=== PATIENT | male | born 1985 | race Two or more races ===

== ENCOUNTER 2021-02-17 19:46 | Inpatient (IN) | payer BC ==
[~2021-02-17] VITALS: Ht 182.9 cm; Wt 94.8 kg
[2021-02-17 20:00] VITALS: BP 112/76
--- NOTE | 2021-02-17 20:00 | NUR ---
MS RN ADMITTING NOTES RECEIVED PATIENT FORM ELBA Borrego.Radha [facility]IA [employer] AND ADMITTED VIA DIRECT ADMISSION. PATIENT IS A&O X 4, ABLE TO LET NEEDS KNOWN. PATIENT WAS ABLE TO AMBULATE WHEN TRANSFERRED TO BED. ON ROOM AIR TOLERATING WELL, N SOB NOTED. WITH IV ACCESS ON RAC G#20 PATENT AND FLUSHES WELL, IV ACCESS ON LEFT FOREARM AND LEFT AC BOTH PATENT AND FLUSHES WELL. STARTED ON NS 1L X 75CC/HR ON RAC, INFUSING WELL. VITAL SIGNS TAKEN AND RECORDED FOLLOWS, TEMP 98.1, TN 100, RR 18 BP 112/76, O2 SAT 98. NOTED WITH DIABETIC WOUND ON RIGHT FOOT, GANGRENE WOUND ON 4TH TOE RIGHT FOOT ALSO NOTED, HEALING WOUND ON PLANTAR ASPECT OF RIGHT FOOT ALSO NOTED, SCAB NOTED ON RIGHT POSTERIOR HAND. PICTURES TAKEN AND FILED TO PATIENT'S CHART. SAFETY PRECAUTIONS IN PLACE: BED ON LOWEST LOCKED POSITION, SIDE RAILS UP X 2. CALL LIGHT WITHIN EASY REACH. INSTRUCTED TO CALL FOR ASSISTANCE WHEN NEEDED. PATIENT VERBALIZED UNDERSTANDING. WILL CONTINUE TO MONITOR PATIENT STATUS.
[2021-02-17] MEDS ORDERED: *INSULIN REGULAR(HUMULIN R)HUM 100 UNIT/ML VIAL SQ PRN (20:30)
[2021-02-17] MEDS ORDERED: Z GUARD REMEDY 2 OZ OINT TP PRN (20:30)
[2021-02-17] MEDS ORDERED: INSULIN REGULAR, HUMAN 100 UNIT/ML 3 ML VIAL SQ PRN (20:30)
[2021-02-17] MEDS ORDERED: MAG HYDROX/AL HYDROX/SIMETH 30 ML UDC PO PRN (20:30)
[2021-02-17] MEDS ORDERED: MAGNESIUM HYDROXIDE 30 ML UDC PO PRN (20:30)
[2021-02-17] MEDS ORDERED: ZOLPIDEM TARTRATE 5 MG TABLET PO PRN (20:30)
[2021-02-17] MEDS ORDERED: DEXTROSE 50%-WATER 50 ML DISP.SYRIN IV PRN (20:30)
[2021-02-17] MEDS ORDERED: ASPI-1169 PO (20:39)
[2021-02-17] MEDS ORDERED: LISI10TA29 PO (20:39)
[2021-02-17] MEDS ORDERED: ATOR20TA PO (20:39)
[2021-02-17] MEDS: IV NS 0.9% 1,000 ML IV PRN (20:51)
[2021-02-17] MEDS ORDERED: BLOOD SUGAR DIAGNOSTIC 1 EACH STRIP VI SCH (22:00)
--- NOTE | 2021-02-17 22:00 | NUR ---
RN NOTES BLOOD SUGAR CHECKED, RESULT 299 MG/DL, 6 UNITS REGULAR INSULIN GIVEN ORDERED.
[2021-02-18] MEDS ORDERED: PIPERACILLIN /TAZOBACTAM 3.375 G VIAL IV ONE ×2 (00:06→05:50)
[2021-02-18] MEDS: PIPERACILLIN /TAZOBACTAM 3.375 G in IV D5W 50 ML IV SCH ×2 (00:14→05:53)
[2021-02-18] MEDS ORDERED: VANCOMYCIN 2 GM in IV D5W 500 ML IV ONE (00:30)
[2021-02-18] MEDS ORDERED: VANCOMYCIN 1 GM VIAL ONE (00:52)
[2021-02-18 06:10] LABS: CALCIUM, SERUM 7.5 mg/dL (8.5-10.1); CREATININE 1.9 mg/dL (0.6-1.3); MAGNESIUM 2.2 mg/dL (1.8-2.4); PHOSPHORUS 3.2 mg/dL (2.5-4.9); POTASSIUM 4.7 mmol/L (3.5-5.1)
[2021-02-18 06:12] LABS: BASOPHILS % (AUTO) 0.3 % (0.0-2.0); EOSINOPHILS % (AUTO) 0.4 % (0.0-6.0); HEMATOCRIT 28 % (39-51); HEMOGLOBIN 9.4 g/dL (13.5-17.5); LYMPHOCYTES # (AUTO) 0.8 K/uL (0.8-4.8); LYMPHOCYTES % (AUTO) 6.8 % (20.0-44.0); MEAN CORPUSCULAR HGB CONC 34 g/dl (31.0-36.0); MEAN CORPUSCULAR VOLUME 85 fL (80-96); MONOCYTES # (AUTO) 1.3 K/uL (0.1-1.30); MONOCYTES % (AUTO) 10.9 % (2.0-12.0); NEUTROPHILS # (AUTO) 9.7 K/uL (1.8-8.9); NEUTROPHILS % (AUTO) 81.6 % (43.0-81.0); PLATELET COUNT (AUTO) 249 K/uL (150-450); RED BLOOD CELL COUNT(AUTO) 3.28 MIL/uL (4.5-6.0); WHITE BLOOD COUNT (AUTO) 11.9 K/uL (4.3-11.0)
--- NOTE | 2021-02-18 06:13 | NUR ---
RN NOTES RECEIVED A PHONE CALL FROM LAB DEP'T RELAYING CRITICAL LAB RESULT OF GLUCOSE, RESULT WAS 351. RELAYED TO LARRY HERNANDEZ NP WITH ORDER MADE AND CARRIED OUT.
[2021-02-18] MEDS ORDERED: *INSULIN REGULAR(HUMULIN R)HUM 100 UNIT/ML VIAL SQ PRN (06:30)
[2021-02-18] MEDS ORDERED: INSULIN REGULAR, HUMAN 100 UNIT/ML 3 ML VIAL SQ PRN (06:30)
[2021-02-18] MEDS ORDERED: DEXTROSE 50%-WATER 50 ML DISP.SYRIN IV PRN ×2 (06:30→10:00)
--- NOTE | 2021-02-18 06:47 | NUR ---
MS RN CLOSING NOTES PATIENT IN BED, AWAKE, A&O X 4, ABLE TO LET NEEDS KNOWN. ON ROOM AIR TOLERATING WELL, NO SOB NOTED. IV OF NS 1L X 75CC/HR INFUSING WELL ON RAC, INTACT AND PATENT, NO INFILTRATION NOTED. IV ACCESS ON LEFT FOREARM AND LEFT AC BOTH PATENT AND FLUSHES WELL. WITH DIABETIC WOUND ON RIGHT FOOT, GANGRENE WOUND ON 4TH TOE RIGHT FOOT ALSO NOTED, HEALING WOUND ON PLANTAR ASPECT OF RIGHT FOOT ALSO NOTED, SCAB NOTED ON RIGHT POSTERIOR HAND. SAFETY PRECAUTIONS MAINTAINED AND OBSERVED DURING THE SHIFT: BED ON LOWEST LOCKED POSITION, SIDE RAILS UP X 2. CALL LIGHT WITHIN EASY REACH.ALL NEEDS ATTENDED AND MET. WILL ENDORSE TO MORNING SHIFT NURSE FOR CONTINUITY OF CARE.
[2021-02-18] MEDS ORDERED: BLOOD SUGAR DIAGNOSTIC 1 EACH STRIP IN SCH (07:30)
--- NOTE | 2021-02-18 07:50 | NUR ---
MS/RN OPENING NOTES RECEIVED PATIENT IN BED, AWAKE, A&O X 4, ABLE TO LET NEEDS KNOWN. ON ROOM AIR TOLERATING WELL, NO SOB NOTED. IV OF NS 1L X 75CC/HR INFUSING WELL ON RAC, INTACT AND PATENT, NO INFILTRATION NOTED. IV ACCESS ON LEFT FOREARM AND LEFT AC BOTH PATENT AND FLUSHES WELL. WITH DIABETIC WOUND ON RIGHT FOOT, GANGRENE WOUND ON 4TH TOE RIGHT FOOT ALSO NOTED, HEALING WOUND ON PLANTAR ASPECT OF RIGHT FOOT ALSO NOTED, SCAB NOTED ON RIGHT POSTERIOR HAND. SAFETY PRECAUTIONS MAINTAINED: BED ON LOWEST LOCKED POSITION, SIDE RAILS UP X 2. CALL LIGHT WITHIN EASY REACH. WILL CONTINUE TO MONITOR PATIENT.
[2021-02-18 08:00] VITALS: BP 123/78
--- NOTE | 2021-02-18 08:28 | NUR ---
WOUND CARE CONSULT: PT PRESENTS WITH PURULENT PLANTAR FOOT WOUND AND OPEN AREA TO TOP OF FOOT WITH SWOLLEN DISCOLORED TOE, PRESENT ON ADMISSION. DR KUMAR CALLED FOR URGENT DPM CONSULT AND HE EXAMINED PT IMMEDIATELY. DEFER TO DPM FOR FOOT WOUNDS. IN AGREEMENT WITH PLAN OF CARE.
[2021-02-18] MEDS: HYDROCODONE/APAP 10/325MG TABLET PO PRN ×2 (09:11→14:24)
[2021-02-18] MEDS: VANCOMYCIN 1 GM in IV D5W 250 ML IV SCH ×2 (09:12→19:46)
[2021-02-18] MEDS: LISINOPRIL (10MG) 10 MG TABLET PO SCH (11:42)
[2021-02-18] MEDS: ATORVASTATIN 10 MG TABLET PO SCH (11:42)
[2021-02-18] MEDS: ASPIRIN 81 MG TAB.CHEW PO SCH (11:42)
[2021-02-18] MEDS ORDERED: PIPERACILLIN /TAZOBACTAM 3.375 G in IV D5W 50 ML IV SCH (12:00)
[2021-02-18] MEDS: BLOOD SUGAR DIAGNOSTIC 1 EACH STRIP IN SCH ×3 (12:55→22:28)
[2021-02-18] MEDS: INSULIN REGULAR, HUMAN 100 UNIT/ML 3 ML VIAL SQ PRN ×2 (13:00→18:13)
[2021-02-18] MEDS: PIPERACILLIN /TAZOBACTAM 3.375 G in IV D5W 100 ML IV SCH ×2 (13:25→19:29)
--- NOTE | 2021-02-18 13:28 | NUR ---
MS/RN NOTES PATIENT WAS PICKED UP BY STAFF AND TAKEN DOWNSTAIRS TO DO THE MRI
[2021-02-18] MEDS: IV NS 0.9% 1,000 ML IV PRN (13:32)
--- NOTE | 2021-02-18 14:15 | NUR ---
MS/RN NOTES PATIENT CAME BACK FROM MRI. NO DISCOMFORTS NOTED AT THIS TIME.
[2021-02-18 16:00] VITALS: BP 100/64
[2021-02-18] MEDS: ACETAMINOPHEN 325 MG TABLET PO PRN ×2 (17:51→20:00)
[2021-02-18] MEDS: SILVER SULFADIAZINE CREAM 25 GM TUBE TP SCH (17:51)
[2021-02-18] MEDS: IV NS 0.9% 1,000 ML IV SCH (18:15)
--- NOTE | 2021-02-18 19:08 | NUR ---
MS/RN CLOSING NOTES PATIENT IN BED, AWAKE, A&O X 4, ABLE TO LET NEEDS KNOWN. ON ROOM AIR TOLERATING WELL, NO SOB NOTED. IV OF NS 1L X 75CC/HR INFUSING WELL ON RAC, INTACT AND PATENT, NO INFILTRATION NOTED. IV ACCESS ON LEFT FOREARM AND LEFT AC BOTH PATENT AND FLUSHES WELL. WITH DIABETIC WOUND ON RIGHT FOOT, GANGRENE WOUND ON 4TH TOE RIGHT FOOT ALSO NOTED, HEALING WOUND ON PLANTAR ASPECT OF RIGHT FOOT ALSO NOTED, SCAB NOTED ON RIGHT POSTERIOR HAND. SAFETY PRECAUTIONS MAINTAINED: BED ON LOWEST LOCKED POSITION, SIDE RAILS UP X 2. CALL LIGHT WITHIN EASY REACH. WILL ENDORSE TO THE NEXT SHIFT..
--- NOTE | 2021-02-18 19:30 | NUR ---
MS/RN OPENING NOTES RECEIVED PATIENT IN BED, AWAKE, A&O X 4, ABLE TO LET NEEDS KNOWN. ON ROOM AIR TOLERATING WELL, NO SOB NOTED. IV OF NS 1L X 75CC/HR INFUSING WELL ON RAC, INTACT AND PATENT, NO INFILTRATION NOTED. IV ACCESS ON LEFT FOREARM AND LEFT AC BOTH PATENT AND FLUSHES WELL. WITH DIABETIC WOUND ON RIGHT FOOT, GANGRENE WOUND ON 4TH TOE RIGHT FOOT ALSO NOTED, HEALING WOUND ON PLANTAR ASPECT OF RIGHT FOOT ALSO NOTED, SCAB NOTED ON RIGHT POSTERIOR HAND. SAFETY PRECAUTIONS MAINTAINED: BED ON LOWEST LOCKED POSITION, SIDE RAILS UP X 2. CALL LIGHT WITHIN EASY REACH. FOR PROCEDURE IN AM, INSTRUCTED ON NPO POST MIDNIGHT, PATIENT VERBALIZED UNDERSTANDING OF INSTRUCTIONS GIVEN. WILL CONTINUE TO MONITOR PATIENT'S CURRENT STATUS.
[2021-02-18 20:00] VITALS: BP_SYST 103; BP_SYST 107; BP_DIAS 60
[2021-02-18] MEDS: ONDANSETRON HCL/PF 4 MG/2 ML VIAL IVP PRN (22:36)
[2021-02-18] MEDS: *INSULIN REGULAR(HUMULIN R)HUM 100 UNIT/ML VIAL SQ PRN (22:38)
[2021-02-19] VITALS (21 sets, daily range): BP systolic 69–140; BP diastolic 50–93
[2021-02-19] MEDS: IV NS 0.9% 1,000 ML IV SCH ×3 (01:42→17:10)
[2021-02-19 04:09] LABS: BASOPHILS # (AUTO) 0.1 K/uL (0.0-0.2); BASOPHILS % (AUTO) 0.5 % (0.0-2.0); EOSINOPHILS % (AUTO) 0.8 % (0.0-6.0); HEMATOCRIT 27 % (39-51); HEMOGLOBIN 9.2 g/dL (13.5-17.5); LYMPHOCYTES # (AUTO) 1.1 K/uL (0.8-4.8); LYMPHOCYTES % (AUTO) 8.6 % (20.0-44.0); MEAN CORPUSCULAR HGB CONC 34 g/dl (31.0-36.0); MEAN CORPUSCULAR VOLUME 84 fL (80-96); MONOCYTES # (AUTO) 1.6 K/uL (0.1-1.30); MONOCYTES % (AUTO) 11.7 % (2.0-12.0); NEUTROPHILS # (AUTO) 10.4 K/uL (1.8-8.9); NEUTROPHILS % (AUTO) 78.4 % (43.0-81.0); PLATELET COUNT (AUTO) 267 K/uL (150-450); RED BLOOD CELL COUNT(AUTO) 3.16 MIL/uL (4.5-6.0); WHITE BLOOD COUNT (AUTO) 13.3 K/uL (4.3-11.0)
[2021-02-19 04:38] LABS: BILIRUBIN,URINE NEGATIVE (NEGATIVE); COLOR,URINE YELLOW (YELLOW); LEUKOCYTE ESTERASE ,URINE NEGATIVE (NEGATIVE); NITRITE, URINE NEGATIVE (NEGATIVE); PH,URINE 5.5 (5.0-8.0); PROTEIN,URINE >=300 mg/dl (NEGATIVE); UGLUCOSE 250 MG/DL mg/dL (NEGATIVE); UROBILINOGEN,URINE 0.2 EU/dL (0.2)
[2021-02-19] MEDS: MEROPENEM 500 MG in IV NS 0.9% 50 ML IV SCH ×3 (04:43→21:41)
[2021-02-19 04:44] LABS: SQUAMOUS EPITHELIAL CELL,UR None Seen /HPF (None Seen); WBC,URINE 0-2 /HPF (0-3)
[2021-02-19 04:45] LABS: BACTERIA,URINE Moderate /HPF (None Seen)
[2021-02-19 04:51] LABS: CALCIUM, SERUM 7.4 mg/dL (8.5-10.1); CREATININE 2.8 mg/dL (0.6-1.3); POTASSIUM 4.4 mmol/L (3.5-5.1)
[2021-02-19] MEDS: ONDANSETRON HCL/PF 4 MG/2 ML VIAL IVP PRN (05:46)
--- NOTE | 2021-02-19 06:15 | NUR ---
RN NOTES PATIENT BLOOD SUGAR CHECKED, RESULT 323 MG/DL, INFORMED PARK KIMBALL DNP, WITH ORDER TO HOLD INSULIN DOSE PER SLIDING SCALE. O.R INFORMED AND SPOKE TO JEREMIAH.
[2021-02-19] MEDS ORDERED: ANESTHESIA TRAY IN PYXIS 1 EA TRAY MC ONE (06:21)
[2021-02-19] MEDS ORDERED: LIDOCAINE 1% INJ 50 ML MDV IJ ONE (06:21)
[2021-02-19] MEDS ORDERED: BUPIVACAINE MPF 0.5% W/EPI INJ 30 ML VIAL ONE (06:21)
[2021-02-19] MEDS: INSULIN REGULAR, HUMAN 100 UNIT/ML 3 ML VIAL SQ PRN ×3 (06:35→18:06)
--- NOTE | 2021-02-19 06:52 | NUR ---
MS RN CLOSING NOTES PATIEN IN BED,AWAKE, A&O X 4, ON ROOM AIR TOLERATING WELL, NO SOB NOTED. IV OF NS 1L X 75CC/HR INFUSING WELL ON LEFT AC, INTACT AND PATENT, NO INFILTRATION NOTED. IV ACCESS ON RAC PATENT AND FLUSHES WELL. WITH DIABETIC WOUND ON RIGHT FOOT, GANGRENE WOUND ON 4TH TOE RIGHT FOOT ALSO NOTED, HEALING WOUND ON PLANTAR ASPECT OF RIGHT FOOT ALSO NOTED, SCAB NOTED ON RIGHT POSTERIOR HAND. SAFETY PRECAUTIONS OBSERVED AND MAINTAINED DURING THE SHUFT: BED ON LOWEST LOCKED POSITION, SIDE RAILS UP X 2. CALL LIGHT WITHIN EASY REACH. FOR RIGHT FOOT INCISION AND DRAINAGE, RIGHT FOOT FOURTH TOE AMPUTATION TODAY AT 7AM, REPORT GIVEN TO JEREMIAH Santiago RN.
[2021-02-19] MEDS ORDERED: BUPIVACAINE 0.5 % PF 150 MG/30 ML VIAL ONE (06:57)
[2021-02-19] MEDS ORDERED: MIDAZOLAM HCL 2 MG/2ML VIAL ONE ×2 (06:59→08:18)
[2021-02-19] MEDS ORDERED: FENTANYL PF 100MCG/2ML AMPUL ONE (06:59)
--- NOTE | 2021-02-19 07:16 | NUR ---
MS RN OPENING NOTES PER REPORT PATIENT IS A/O X4. PATIENT HAS IV ACCESS RAC #20 AND LAC # 20 GAUGE. PATIENT HAS IV FLUIDS ORDERED. PATIENT IS IN SURGICAL PROCEDURE AT THIS TIME. WILL REASSESS POST SURGERY.
[2021-02-19] MEDS: BLOOD SUGAR DIAGNOSTIC 1 EACH STRIP IN SCH ×4 (07:19→22:11)
[2021-02-19 07:57] LABS: CREATININE, URINE 191.4 MG/DL (30.0-125.0)
[2021-02-19 07:58] LABS: URINE TOTAL PROTEIN 385.3 mg/dL (0-11.9)
[2021-02-19] MEDS: SILVER SULFADIAZINE CREAM 25 GM TUBE TP SCH ×2 (08:36→18:09)
[2021-02-19] MEDS: LISINOPRIL (10MG) 10 MG TABLET PO SCH (08:36)
[2021-02-19] MEDS: ASPIRIN 81 MG TAB.CHEW PO SCH (08:36)
[2021-02-19] MEDS: ATORVASTATIN 10 MG TABLET PO SCH (08:36)
--- NOTE | 2021-02-19 08:36 | NUR ---
RN NOTE PATIENT CONTINUES TO BE OFF FLOOR FOR SURGICAL PROCEDURE, PATIENT NPO PRIOR, MORNING PO MEDICATIONS HELD. SPOKE WITH PHARMACY REGARDING VANCOMYCIN, WILL ADJUST MEDICATION TIME ONCE PATIENT HAS RETURNED.
--- NOTE | 2021-02-19 09:00 | NUR ---
RN NOTE RECEIVED PATIENT BACK FROM SURGERY. PATIENT IS RESTING IN BED. VITALS BP91/63, HR 117. RR 18. O2 95% ON 6 LPM VIA NASAL CANNULA. PATIENT IS BREATHING EVENLY AND NONLABORED NO ACUTE DISTRESS. MD ORDER FOR TELE MONITORING FOR NEXT 24 HRS DUE TO TACHYCARDIA. CARRIED OUT. WILL CONTINUE TO MONITOR
[2021-02-19] MEDS: VANCOMYCIN 1 GM in IV D5W 250 ML IV SCH (09:05)
[2021-02-19] MEDS: INSULIN GLARGINE, 100 UNIT/ML CARTRIDGE SQ SCH (10:10)
--- NOTE | 2021-02-19 11:00 | NUR ---
RN NOTE BLOOD GLUCOSE CHECK WAS 390- 20 UNITS OF INSULIN GIVEN
--- NOTE | 2021-02-19 14:37 | NUR ---
RN NOTE PATIENT COMPLAINED OF IV LEAKING, PATIENT STATED HE ACCIDENTALLY PULLED IV OUT WHILE SLEEPING, PATIENT STILL HAS 1 IV ACCESS ON RAC PATENT AND INTACT
--- NOTE | 2021-02-19 15:33 | NUR ---
RN NOTE DURING ROUNDS, PATIENTS BP NOTED @ 68/54. RECHECKED MANUAL 78/59. PATIENT STATED HE WAS FEELING DIZZY AND SOB WITH RINGING IN THE EARS. O2 WAS PLACED ON PATIENT AND PLACED IN [place]. MD WAS NOTIFIED WHO ORDERED 1 L NS BOLUS AND RECHECK BP. WILL CONTINUE TO MONITOR
[2021-02-19] MEDS: ACETAMINOPHEN 325 MG TABLET PO PRN (15:43)
--- NOTE | 2021-02-19 15:57 | NUR ---
RN NOTE ASSESSED GLUCOSE 357. WILL CONTINUE TO MONITOR
[2021-02-19] MEDS ORDERED: IV NS 0.9% 1,000 ML IV ONE ×2 (16:00→16:35)
--- NOTE | 2021-02-19 16:30 | NUR ---
RN NOTE PATIENT STILL COMPLAINS OF SOB AND RINGING IN THE EARS, LITER OF FLUIDS ALMOST COMPLETE BP 70/50
--- NOTE | 2021-02-19 16:45 | NUR ---
RN NOTE IV BOLUS COMPLETED. PATIENT'S BP 72/53. MD NOTIFIED WITH NEW ORDERS TO TRANSFER TO ICU FOR CLOSER BP MONITORING. PATIENT IS SINUS RHYTHM ON THE MONITOR. PATIENT WAS TRANSFERRED VIA GURNEY WITH O2 @ 2LPM REPORT GIVEN BEDSIDE TO EDWIN. PATIENTS BELONGINGS AND MEDICATION TAKEN TO ROOM.
[2021-02-19] MEDS ORDERED: NOREPINEPHRINE 8 MG in IV NS 0.9% 242 ML IV PRN ×3 (17:00→19:00)
--- NOTE | 2021-02-19 17:00 | NUR ---
RN NOTE PT BEDSIDE REPORT GIVEN BY BIENVENIDO HITCHCOCK. PT TRANSFERRED IN BED SEMIFOWLER'S ON NC 2L SPO2 100%. PT A/Ox4, DENIES ANY PAIN AT THIS MOMENT. PT TRANSFERRED TO ICU FOR DECREASED BP, SYSTOLIC IN 60s, PT DENIES DIZZINESS AND IS ASYMPTOMATIC AT THIS MOMENT. 1 L NS BOLUS GIVEN IN 3W, WILL CARRY OUT ALL PT ORDERS. PT HAS RAC #20 SL, FLUSHED, PATENT AND INTACT WITH NO SIGNS OF INFECTION/INFILTRATION. PT HAD RT FOOT MULTIPLE INCISIONS AND DRAINAGE BELOW FASCIA, RT FOOT 4TH TOE AMPUTATED @ 0700 TODAY. PT VITALS HR 92, BP 79/53, SPO2 100%, RR 17. ALL PT SAFETY PRECAUTIONS IN PLACE, WILL CONT TO MONITOR
[2021-02-19 17:09] LABS: BASOPHILS # (AUTO) 0.1 K/uL (0.0-0.2); BASOPHILS % (AUTO) 0.5 % (0.0-2.0); EOSINOPHILS % (AUTO) 0.1 % (0.0-6.0); HEMATOCRIT 27 % (39-51); LYMPHOCYTES # (AUTO) 0.8 K/uL (0.8-4.8); LYMPHOCYTES % (AUTO) 6.3 % (20.0-44.0); MEAN CORPUSCULAR HGB CONC 33 g/dl (31.0-36.0); MEAN CORPUSCULAR VOLUME 87 fL (80-96); MONOCYTES # (AUTO) 1.4 K/uL (0.1-1.30); MONOCYTES % (AUTO) 10.1 % (2.0-12.0); NEUTROPHILS # (AUTO) 11.1 K/uL (1.8-8.9); PLATELET COUNT (AUTO) 279 K/uL (150-450); RED BLOOD CELL COUNT(AUTO) 3.13 MIL/uL (4.5-6.0); WHITE BLOOD COUNT (AUTO) 13.4 K/uL (4.3-11.0)
--- NOTE | 2021-02-19 18:15 | NUR ---
BIENVENIDO THIBODEAUX AWARE OF PT BLOOD GLUCOSE OF 433. 20 UNITS INSULIN GIVEN ORDERED PER SLIDING SCALE
--- NOTE | 2021-02-19 19:00 | NUR ---
PATIENT PORTAL CONCIERGE CLOSING NOTE PT STABLE WITH BP OF 146/92, DOWNWARD TITRATION OF LEVO HAS BEGUN, CURRENTLY RUNNING @ 0.08 MCG/KG/MIN. PT DENIES PAIN. PT NOW ON RA SPO2 OF 100%, NO SOB OR RESP DISTRESS. ALL PT SAFETY PRECAUTIONS IN PLACE. BRANDON ENDORSED TO OBSTETRICS GYNECOLOGY MD NURSE
[2021-02-19 20:03] LABS: BILIRUBIN,TOTAL 0.4 mg/dL (0.2-1.0); CALCIUM, SERUM 7.4 mg/dL (8.5-10.1); CREATININE 4.5 mg/dL (0.6-1.3); MAGNESIUM 2.3 mg/dL (1.8-2.4); PHOSPHORUS 5.9 mg/dL (2.5-4.9); POTASSIUM 5.8 mmol/L (3.5-5.1); TOTAL PROTEIN, SERUM 6.6 g/dL (6.4-8.2)
[2021-02-19 20:06] LABS: ALBUMIN 1.2 g/dL (3.4-5.0)
--- NOTE | 2021-02-19 20:08 | NUR ---
ICU/SPAR FINISHER PT COMPLAINED ABOUT BEING DIZZY, CHECKED BLOOD SUGAR IT WAS 446. THIS WAS RELATED BACK TO THE ADJUSTER PIANO ACTION PRASAD WHO SAID TO INCREASE HIS IVF TO 200ML OF THE NS. SAID TO RELAY ALL MESSAGES TO RACE AND SPORTS BOOK WRITER RUMA KIMBALL.
[2021-02-19] MEDS: VANCOMYCIN 0.75 GM in IV D5W 250 ML IV SCH (20:23)
[2021-02-19] MEDS ORDERED: SODIUM POLYSTYRENE SULF. PWD 15 GM UDC PO ONE (21:00)
--- NOTE | 2021-02-19 21:21 | NUR ---
ICU/MILK WAGON DRIVER 2029-CRITICAL LAB VALUES FROM [facility] OF GLUCOSE 469 AND ALBUMIN 1.2, ALSO ADDRESSED THE HIGH POTASSIUM OF 5.8 WITH ANA MARIA KIMBALL, WHO SAID TO INCREASE THE LANTUS HS TO 25 UNITS SQ AND FOR THE POTASSIUM 5.8 GIVEN KAYEXALATE 30GMS AND 10 UNITS. FOR LOW ALBUMIN TO JUST WATCH THIS. ORDER WERE CARRIED OUT AND CHARGE NURSE AWARE OF THESE NEW ORDERS.
[2021-02-19] MEDS ORDERED: INSULIN REGULAR, HUMAN 100 UNIT/ML 10 ML VIAL IV ONE (21:30)
[2021-02-19] MEDS ORDERED: MEROPENEM 500 MG VIAL IV ONE ×2 (21:40→22:18)
--- NOTE | 2021-02-19 21:47 | NUR ---
ICU/APPLIED BEHAVIOR SPECIALIST MERREM IV TAKEN FROM [employer] DUE TO NOT ON FLOOR.
[2021-02-19] MEDS ORDERED: INSULIN GLARGINE, 100 UNIT/ML CARTRIDGE SQ SCH ×2 (22:00)
--- NOTE | 2021-02-19 22:10 | NUR ---
ICU/CHECK INSPECTOR WAS ABLE TO VERONICA OFF THE LEVO FOR STABLE BP. REFER TO THE IV FLOWSHEET FOR TITRATIONS TO THIS. WILL MONITOR THIS PT.
[2021-02-19] MEDS ORDERED: SODIUM POLYSTYRENE SULFONATE 15 G/60 ML BOTTLE ONE (22:17)
[2021-02-19] MEDS: *INSULIN REGULAR(HUMULIN R)HUM 100 UNIT/ML VIAL SQ PRN (22:18)
[2021-02-20] VITALS (67 sets, daily range): BP systolic 86–152; BP diastolic 35–86
[2021-02-20] MEDS: IV NS 0.9% 1,000 ML IV SCH ×4 (00:21→20:08)
--- NOTE | 2021-02-20 00:45 | NUR ---
ICU/CHIEF NUCLEAR MEDICINE TECHNOLOGIST LEVO WAS RESTARTED BY THE NIGHT CHARGE NURSE FOR LOW BP 80'S. WILL MONITOR THIS SBP CLOSELY.
--- NOTE | 2021-02-20 02:30 | NUR ---
ICU/RESISTOR TESTING MACHINE OPERATOR LEVO WAS TITRATED DOWN TO 0.02 FROM 0.1. WILL CONTINUE TO MONITOR THIS PT AND HIS SBP.
[2021-02-20] MEDS ORDERED: IV NS 0.9% 1,000 ML IV PRN (03:30)
[2021-02-20 04:37] LABS: BASOPHILS # (AUTO) 0.1 K/uL (0.0-0.2); BASOPHILS % (AUTO) 0.6 % (0.0-2.0); EOSINOPHILS % (AUTO) 0.3 % (0.0-6.0); HEMATOCRIT 28 % (39-51); HEMOGLOBIN 9.2 g/dL (13.5-17.5); LYMPHOCYTES # (AUTO) 1.6 K/uL (0.8-4.8); MEAN CORPUSCULAR HGB CONC 33 g/dl (31.0-36.0); MEAN CORPUSCULAR VOLUME 87 fL (80-96); MONOCYTES # (AUTO) 1.4 K/uL (0.1-1.30); MONOCYTES % (AUTO) 9.5 % (2.0-12.0); NEUTROPHILS # (AUTO) 11.8 K/uL (1.8-8.9); NEUTROPHILS % (AUTO) 78.6 % (43.0-81.0); PLATELET COUNT (AUTO) 346 K/uL (150-450); RED BLOOD CELL COUNT(AUTO) 3.21 MIL/uL (4.5-6.0)
[2021-02-20 04:52] LABS: CALCIUM, SERUM 7.3 mg/dL (8.5-10.1); CREATININE 4.5 mg/dL (0.6-1.3); MAGNESIUM 2.6 mg/dL (1.8-2.4); PHOSPHORUS 5.9 mg/dL (2.5-4.9); POTASSIUM 3.5 mmol/L (3.5-5.1)
--- NOTE | 2021-02-20 05:00 | NUR ---
ICU/SCALE RECLAMATION TENDER PT HAD A VERY LARGE BM, ASST TO BEDSIDE COMMODE, THEN HELP CLEANED UP PT ASST BACK TO BED. CALL LIGHT WITHIN REACH.
[2021-02-20] MEDS: MEROPENEM 500 MG in IV NS 0.9% 50 ML IV SCH ×3 (05:09→20:47)
[2021-02-20] MEDS: HYDROCODONE/APAP 10/325MG TABLET PO PRN ×3 (06:01→20:53)
--- NOTE | 2021-02-20 06:30 | NUR ---
ICU/TREE INSPECTOR PT APPEARS IN PAIN , RAIN IS TO RIGHT FOOT RATED 7/10 GAVE 1 TAB NORCO FOR THIS. WILL MONITOR THIS PT PAIN. CALL LIGHT WITHIN REACH.
--- NOTE | 2021-02-20 07:30 | NUR ---
OPENING NOTE: REPORT RECEIVED FROM SUMAN PACHECO. PT ALERT OX4, FOLLOWS COMMANDS. ON LEVOPHED AT 0.02MCG/KG/MIN, TITRATING PER MD ORDERS. RIGHT FOOT DRESSING CDI, ORIGINAL SURGICAL DRESSING FROM YESTERDAY. PT CHECKED ON HOURLY AND PRN BY NURSING STAFF.
[2021-02-20] MEDS: BLOOD SUGAR DIAGNOSTIC 1 EACH STRIP IN SCH ×14 (08:14→23:16)
[2021-02-20] MEDS: VANCOMYCIN 0.75 GM in IV D5W 250 ML IV SCH (08:15)
[2021-02-20] MEDS: INSULIN REGULAR, HUMAN 100 UNIT/ML 3 ML VIAL SQ PRN (08:16)
[2021-02-20] MEDS: INSULIN GLARGINE, 100 UNIT/ML CARTRIDGE SQ SCH (08:17)
--- NOTE | 2021-02-20 08:41 | NUR ---
DR ALLEN NOTIFIED OF TROPONIN OF 6.581
[2021-02-20] MEDS: SILVER SULFADIAZINE CREAM 25 GM TUBE TP SCH (09:00)
[2021-02-20] MEDS: ASPIRIN 81 MG TAB.CHEW PO SCH (09:07)
--- NOTE | 2021-02-20 09:10 | NUR ---
SILVADENE CREAM NOT APPLIED, NEW SURGICAL DRESSING FROM YESTERDAY. WILL VERIFY WITH SURGEON ABOUT MED.
[2021-02-20] MEDS ORDERED: INSULIN REGULAR, HUMAN 100 UNIT in IV NS 0.9% 99 ML IV PRN (09:30)
[2021-02-20] MEDS ORDERED: HEPARIN SODIUM, PORCINE 5000 UNITS/1 ML VIAL IV ONE ×2 (11:30)
[2021-02-20] MEDS: HEPARIN INFUSION/D5W 500 ML IV PRN (11:40)
--- NOTE | 2021-02-20 12:00 | NUR ---
INSULIN GTT AND HEPARIN GTTS STARTED PER MD ORDERS. DR BURNETTE CONSULTED FOR POTENTIAL HEART CATH. NO ORDER IN SYSTEM OF THIS TIME.
[2021-02-20 15:28] LABS: CALCIUM, SERUM 7.2 mg/dL (8.5-10.1); CREATININE 4.2 mg/dL (0.6-1.3)
--- NOTE | 2021-02-20 18:16 | NUR ---
END OF SHIFT NOTE: INSULIN GTT INFUSING PER MD ORDERS WITH HOURLY ACCUCHECKS, FORMULA IS BG X1.5/100. CURRENTLY INFUSING AT 2.9 UNITS/HOUR. HEPARIN GTT INFUSING AT 1200 UNITS/HR PER MD ORDERS. PTT WAS DRAWN AT 1800, AWAITING RESULTS. LEVOPHED GTT TITRATED OFF AT 0810 THIS AM. DRESSING CHANGE DONE TO RIGHT FOOT PER MD ORDERS. PER DR. ROA FURTHER DEBRIDEMENT AND POSSIBLE AMPUTATION OF 4TH TOE ON RIGHT FOOT WILL BE SCHEDULED FOR WEDNESDAY. PER DR. DECKER AND DR ALLEN PT NEEDS HEART CATH, AWAITING DR BURNETTE TO SEE PATIENT OR PUT ORDERS IN. PT REMAINED CALM AND COOPERATIVE ALL SHIFT. PT CHECKED ON HOURLY AND PRN BY NURSING STAFF.
[2021-02-20 18:38] LABS: CALCIUM, SERUM 7.3 mg/dL (8.5-10.1); CREATININE 4.1 mg/dL (0.6-1.3); POTASSIUM 4.3 mmol/L (3.5-5.1)
--- NOTE | 2021-02-20 19:30 | NUR ---
ICU/PRINTING PLATE MAKER RECIEVED REPORT FROM DAY NURSE. SEE FLOW SHEET FOR ASSESSMENT. WELL ANY SKIN ISSUES THAT NEED TO ADDRESS, ALONG WITH INTERVENTIONS TO EACH. PT IS CURRENTLY ON NS @150ML/HR. HEPARIN 1400 UNITS/HR AND INSULIN AT 3UNITS/HR WITH ACCU CHECKS EVERY HOUR. BMP RELATED TO INCREASED SUGARS ARE EVERY 4 HOURS 23,03,05 TO MONITOR THE ANION GAP. PTT,INR,PT ARE EVERY 6 HOURS STARTING AT 00, 06 IF CHANGES ARE MADE. CALL LIGHT WITHIN EACH, NO SIGNS OF DISTRESS SEEN.
--- NOTE | 2021-02-20 20:30 | NUR ---
ICU/CIRCULAR RIPSAW OPERATOR SOCIAL SERVICE CONSULT PLACED DUE TO PT REQUIRES A NOTE FOR WORK. WILL HAVE DAY NURSE FOLLOW UP WITH THIS.
[2021-02-20] MEDS: LINEZOLID 600 MG TABLET PO SCH (20:53)
--- NOTE | 2021-02-20 21:00 | NUR ---
ICU/NATURAL RESOURCES MANAGER PT APPEARS TO BE IN PAIN, NORCO 1 TAB GIVEN FOR THIS WHICH WAS RATED AT 7/10. WILL CONTINUE TO MONITOR THIS PT AND HIS PAIN.
--- NOTE | 2021-02-20 22:44 | NUR ---
ICU/TUBE HEATER POST DEBRIDEMENT TO THE RIGHT WAS DONE ON 02/19 HOWEVER THE PT HAD SURGICAL DRESSING. THIS WAS REMOVED ON DAY SHIFT. POST DEBRIDEMENT PHOTOGRAPHS WERE DONE AND PLACED IN THE CHART.
--- NOTE | 2021-02-20 23:30 | NUR ---
ICU/PORCELAIN ENAMELER ZOFRAN PRN GIVEN IVP BY FLORAL CLERK NURSE FOR NAUSEA. WILL MONITOR THIS PT AND HIS NAUSEA.
[2021-02-20] MEDS: ONDANSETRON HCL/PF 4 MG/2 ML VIAL IVP PRN (23:36)
[2021-02-20 23:51] LABS: CALCIUM, SERUM 7.2 mg/dL (8.5-10.1); CREATININE 3.9 mg/dL (0.6-1.3); POTASSIUM 4.6 mmol/L (3.5-5.1)
[2021-02-21] VITALS (27 sets, daily range): BP systolic 86–121; BP diastolic 44–80
--- NOTE | 2021-02-21 00:15 | NUR ---
ICU/SENIOR CENTER MANAGER ANION GAP IS 16, PT CONTINUES WITH EVERY 1 HOUR ACCU CHECKS. NEXT BMP IS AT 0300. WILL CONTINUE TO MONITOR THIS PT.
[2021-02-21] MEDS: BLOOD SUGAR DIAGNOSTIC 1 EACH STRIP IN SCH ×12 (00:33→21:13)
--- NOTE | 2021-02-21 00:56 | NUR ---
ICU/EMPLOYEE COMMUNICATIONS COORDINATOR PT-11.4, INR-1.08, APPT-38.3. PER HEPARIN PROTOCOL DUE TO APTT BEING WITHIN THE RANGE OF 35-45 THEN TO INCREASE THE RATE 200. SO CURRENT RATE IS 1400, NEW RATE 1600. BEGINNING RATE WAS 1200, THEN INCREASED 200 TO RATE OF 1400, NOW INCREASED 200 TO A NEW RATE OF 1600
--- NOTE | 2021-02-21 01:30 | NUR ---
ICU/INSULATING MACHINE OPERATOR PT REQUIRES A COVID RAPID BEFORE SURGERY, THIS WAS DONE. AT 0030 WITH BMP. THE RESULT WAS NEGATIVE. 0000-PT MADE NPO FOR POSSIBLE SURGERY. 0030- CONSENTS WERE MADE FOR BOTH ANGIO LEGAL RESEARCH ANALYST AND ALSO I&D WITH AMPUTATION TO 4TH TOE.
[2021-02-21] MEDS: IV NS 0.9% 1,000 ML IV SCH ×2 (02:57→14:16)
[2021-02-21 03:52] LABS: BASOPHILS # (AUTO) 0.1 K/uL (0.0-0.2); BASOPHILS % (AUTO) 0.8 % (0.0-2.0); BILIRUBIN,TOTAL 0.2 mg/dL (0.2-1.0); CALCIUM, SERUM 6.9 mg/dL (8.5-10.1); CREATININE 3.7 mg/dL (0.6-1.3); EOSINOPHILS % (AUTO) 0.9 % (0.0-6.0); HEMATOCRIT 26 % (39-51); HEMOGLOBIN 8.9 g/dL (13.5-17.5); LYMPHOCYTES # (AUTO) 1.4 K/uL (0.8-4.8); LYMPHOCYTES % (AUTO) 11.5 % (20.0-44.0); MAGNESIUM 2.1 mg/dL (1.8-2.4); MEAN CORPUSCULAR HGB CONC 34 g/dl (31.0-36.0); MEAN CORPUSCULAR VOLUME 86 fL (80-96); MONOCYTES # (AUTO) 1.1 K/uL (0.1-1.30); MONOCYTES % (AUTO) 8.7 % (2.0-12.0); NEUTROPHILS # (AUTO) 9.8 K/uL (1.8-8.9); NEUTROPHILS % (AUTO) 78.1 % (43.0-81.0); PHOSPHORUS 4.8 mg/dL (2.5-4.9); PLATELET COUNT (AUTO) 359 K/uL (150-450); POTASSIUM 3.4 mmol/L (3.5-5.1); RED BLOOD CELL COUNT(AUTO) 3.08 MIL/uL (4.5-6.0); TOTAL PROTEIN, SERUM 6.2 g/dL (6.4-8.2); WHITE BLOOD COUNT (AUTO) 12.5 K/uL (4.3-11.0)
[2021-02-21 04:15] LABS: ALBUMIN 1.1 g/dL (3.4-5.0)
[2021-02-21] MEDS ORDERED: ALBUMIN 25% 25 GM in PREMIX 1 EA IV ONE (04:30)
--- NOTE | 2021-02-21 04:33 | NUR ---
ICU/ESCROW SECRETARY CRITICAL LAB OF ALBUMIN 1.1 DOWN FROM 1.2, ORDER WAS RECIEVED BY ANA MARIA KIMBALL FOR ONE TIME ORDER 25%ALBUMIN 25% X2 BOTTLES.
[2021-02-21] MEDS ORDERED: ALBUMIN 25% 100 ML IV ONE (04:34)
[2021-02-21] MEDS: MEROPENEM 500 MG in IV NS 0.9% 50 ML IV SCH ×3 (04:48→21:02)
[2021-02-21] MEDS: HEPARIN INFUSION/D5W 500 ML IV PRN ×2 (05:40→22:11)
[2021-02-21] MEDS: ONDANSETRON HCL/PF 4 MG/2 ML VIAL IVP PRN (05:56)
--- NOTE | 2021-02-21 06:06 | NUR ---
icu/prepared foods supervisor 0600-Zofran given for nausea. will monitor this pt's nausea. 0605-ptt, pt, inr done await for results.
[2021-02-21] MEDS ORDERED: IV NS 0.9% 1,000 ML ONE (06:39)
[2021-02-21] MEDS ORDERED: LIDOCAINE HCL/MPF 1% 30 ML VIAL IJ ONE (06:40)
[2021-02-21] MEDS ORDERED: IODIXANOL 150 ML IV ONE (06:40)
[2021-02-21] MEDS ORDERED: NITROGLYCERIN IN 5 % DEXTROSE 250 ML IV ONE (07:15)
[2021-02-21] MEDS ORDERED: FENTANYL PF 100MCG/2ML AMPUL ONE (07:19)
[2021-02-21] MEDS ORDERED: MIDAZOLAM HCL 2 MG/2ML VIAL ONE (07:19)
--- NOTE | 2021-02-21 07:30 | NUR ---
OPENING NOTE: PT LEFT FOR CERTIFIED OPHTHALMIC SURGICAL ASSISTANT AT 0706. HEPARIN, INSULIN AND IVF STOPPED PRIOR TO LEAVING FOR CERTIFIED OPHTHALMIC SURGICAL ASSISTANT. REPORT RECEIVED FROM SUMAN PACHECO. INSULIN AND HEPARIN GTTS CONTINUED OVER NIGHT PER MD ORDERS. PT WAS KEPT NPO AFTER MIDNIGHT. PT ALERT, OX4, STATES HE IS NERVOUS ABOUT THE HEART CATH. PT CHECKED ON HOURLY AND PRN BY NURSING STAFF.
[2021-02-21] MEDS ORDERED: HEPARIN SODIUM, PORCINE 1,000 UNIT/ML VIAL ONE (07:32)
[2021-02-21 07:37] LABS: CALCIUM, SERUM 7.5 mg/dL (8.5-10.1); CREATININE 3.6 mg/dL (0.6-1.3); POTASSIUM 3.9 mmol/L (3.5-5.1)
[2021-02-21] MEDS ORDERED: DEXTROSE 50%-WATER 50 ML DISP.SYRIN IV PRN (08:30)
--- NOTE | 2021-02-21 09:08 | NUR ---
REPORT RECEIVED FROM DIRECTOR ELECTRONICS. NO INTERVENTIONS DONE. ANGIOGRAM OF THE HEART AND LEGS DONE AND RIGHT GROIN PATRICIA CATH INSERTED DURING PROCEDURE. PER DR ALLEN CONTINUE HEPARIN GTT WHEN PATIENT RETURNS.
--- NOTE | 2021-02-21 09:40 | NUR ---
PT ARRIVED FROM CARDIOPULMONARY TECHNICIAN AND EEG TECH AT 0920. HEPARIN GTT AND IV FLUIDS RESUMED AT THIS TIME. RIGHT GROIN JOSUE CATH NOTED TO HAVE BEEN INSERTED DURING HEART CATH. LEFT GROIN PER CLOSE SITE IS CDI, NO DRAINAGE, NO SWELLING, SITE IS SOFT. PATIENT C/O LOW BACK PAIN FROM CARDIOPULMONARY TECHNICIAN AND EEG TECH. PT TO LAY FLAT FOR 2 HOURS THEN 10 DEGREES FOR 1 HOUR THAN UP TO 30 DEGREES PER MD ORDERS. PT CHECKED ON FREQUENTLY BY NURSING STAFF.
[2021-02-21] MEDS: LINEZOLID 600 MG TABLET PO SCH ×2 (10:00→21:02)
[2021-02-21] MEDS: HYDROCODONE/APAP 10/325MG TABLET PO PRN ×2 (10:01→17:52)
[2021-02-21] MEDS: ASPIRIN 81 MG TAB.CHEW PO SCH (10:01)
[2021-02-21] MEDS: INSULIN REGULAR, HUMAN 100 UNIT/ML 3 ML VIAL SQ PRN ×2 (12:07→18:14)
--- NOTE | 2021-02-21 16:32 | NUR ---
PTT RESULT 47.7, NO CHANGE PER PROTOCOL AND PHARMACY.
--- NOTE | 2021-02-21 18:30 | NUR ---
END OF SHIFT NOTE: DR SHARMA SAW PATIENT THIS EVENING, EXPLAINED TO PATIENT HE WILL NEED A CABG, MOST LIKELY ON WEDNESDAY. HE IS COORDINATING WITH [employer]ICE LICENSEE FOR TRANSFER TO EITHER [place] OR [place], POSSIBLE WEDNESDAY. PT INFORMED HIS BROTHER TO INFORM THE REST OF THE FAMILY. RIGHT GROIN JEWEL INTACT WITHOUT DRAINAGE OR SWELLING. LEFT GROIN CATH SITE IS SOFT, NO BLEEDING OR HEMATOMA NOTED. INSULIN GTT DC'D THIS SHIFT. HEPARIN GTT CONTINUES, THERAPUTIC PTT AT 1540, NOW DAILY PTT'S. PT CHECKED ON HOURLY AND PRN BY NURSING STAFF.
--- NOTE | 2021-02-21 19:30 | NUR ---
RN NOTE RECEIVED PATIENT ALERT AND ORIENTED X 4. DENIES ANY PAIN AT THIS TIME. ON O2 THERAPY 2L VIA NC, DENIES SOB, NO SIGNS OF DISTRESS NOTED. PT ON HEPARIN DRIP AT 1800 U/HR. AND IVF NS 150ML/HR, GOT ENDORSED TO JUST FINISH THE CURRENT BAG AND D/C AFTER. IV PATENT AND INTACT. PT WOUND DRESSING ON R FOOT CLEAN DRY AND INTACT. DRESSING ON LEFT GROIN FROM CATH SITE CLEAN DRY AND INTACT. PT EDUCATED REGARDING FLUID RESTRICTIONS, VERBALIZES UNDERSTANDING. ALL SAFETY MEASURES IN PLACE PER PROTOCOL. CALL LIGHT WITHIN REACH BED LOCKED IN LOWEST POSITION, SIDE RAILS UP. WILL CONTINUE TO MONITOR.
[2021-02-21] MEDS: *INSULIN REGULAR(HUMULIN R)HUM 100 UNIT/ML VIAL SQ PRN (21:16)
--- NOTE | 2021-02-21 21:30 | NUR ---
RN NOTE WOUND TREATMENT DONE ON RIGHT FOOT. PT TOLERATED. PT REFUSED TO HAVE BED BATH AND LINEN CHANGE. PT IS INDEPENDENT TO SELF CARE.
--- NOTE | 2021-02-21 21:59 | NUR ---
RN NOTE IVF NS DISCONTINUED PER DR DECKER'S ORDER.
[2021-02-21] MEDS ORDERED: INSULIN GLARGINE, 100 UNIT/ML CARTRIDGE SQ SCH (22:00)
[2021-02-22] VITALS (25 sets, daily range): BP systolic 96–163; BP diastolic 54–85
[2021-02-22] MEDS: MEROPENEM 500 MG in IV NS 0.9% 50 ML IV SCH ×2 (04:29→12:58)
[2021-02-22 04:53] LABS: BASOPHILS # (AUTO) 0.1 K/uL (0.0-0.2); BASOPHILS % (AUTO) 1.2 % (0.0-2.0); EOSINOPHILS % (AUTO) 0.6 % (0.0-6.0); HEMATOCRIT 25 % (39-51); HEMOGLOBIN 8.6 g/dL (13.5-17.5); LYMPHOCYTES % (AUTO) 10.1 % (20.0-44.0); MEAN CORPUSCULAR HGB CONC 34 g/dl (31.0-36.0); MEAN CORPUSCULAR VOLUME 86 fL (80-96); MONOCYTES % (AUTO) 10.4 % (2.0-12.0); NEUTROPHILS # (AUTO) 7.4 K/uL (1.8-8.9); NEUTROPHILS % (AUTO) 77.7 % (43.0-81.0); PLATELET COUNT (AUTO) 332 K/uL (150-450); RED BLOOD CELL COUNT(AUTO) 2.95 MIL/uL (4.5-6.0); WHITE BLOOD COUNT (AUTO) 9.5 K/uL (4.3-11.0)
[2021-02-22 05:20] LABS: CALCIUM, SERUM 7.5 mg/dL (8.5-10.1); CREATININE 3.3 mg/dL (0.6-1.3); MAGNESIUM 2.2 mg/dL (1.8-2.4); PHOSPHORUS 5.7 mg/dL (2.5-4.9); POTASSIUM 4.3 mmol/L (3.5-5.1)
--- NOTE | 2021-02-22 06:11 | NUR ---
RN NOTE PTT RESULT 57.8, NO CHANGE ON HEPARIN DRIP PER PROTOCOL. CONTINUE ON 1800 U/HR.
--- NOTE | 2021-02-22 06:38 | NUR ---
RN NOTE PT SLEEPING, AROUSES EASILY. CONTINUE ON O2 AT 2LPM. NO SIGNS OF DISTRESS. PT DENIES ANY PAIN. IV REMAIN PATENT AND INTACT, NO SIGNS OF INFILTRATION NOTED. PT REMAIN AFEBRILE. VS STABLE. ON FREQUENT VISUAL CHECKS, NO SIGNIFICANT CHANGES NOTED. WILL ENDORSE TO NEXT SHIFT NURSE FOR BRANDON.
--- NOTE | 2021-02-22 07:15 | NUR ---
BOAT WORKER OPENING NOTE Received patient awake AOx4 no co pain or discomfort. On NC 2L tolerating well no signs of distress. Tele monitor reading SR 90s. Noted with RAC#20, SALOMÓN Midline running Heparin 1800u/hr. R femoral HD cath. Patient on fluid restriction will monitor closely. R foot diabetic wound with dressing intact no signs of bleeding. Vital signs within normal limits. Safety measures reinforced. Bed side commode in place and urinal. Will cont to monitor.
[2021-02-22] MEDS: BLOOD SUGAR DIAGNOSTIC 1 EACH STRIP IN SCH ×4 (07:49→21:36)
[2021-02-22] MEDS: INSULIN REGULAR, HUMAN 100 UNIT/ML 3 ML VIAL SQ PRN ×3 (07:49→17:51)
[2021-02-22] MEDS ORDERED: HEPARIN SODIUM, PORCINE 5000 UNITS/1 ML VIAL IV ONE (08:00)
[2021-02-22] MEDS ORDERED: HEPARIN SODIUM, PORCINE 5000 UNITS/1 ML VIAL IV PRN (08:30)
[2021-02-22] MEDS: LINEZOLID 600 MG TABLET PO SCH ×2 (08:32→21:12)
[2021-02-22] MEDS: ASPIRIN 81 MG TAB.CHEW PO SCH (08:32)
[2021-02-22] MEDS: HYDROCODONE/APAP 10/325MG TABLET PO PRN ×3 (08:37→22:18)
[2021-02-22] MEDS: HEPARIN INFUSION/D5W 500 ML IV PRN (12:58)
[2021-02-22] MEDS: CEFTRIAXONE 2 G in IV D5W 100 ML IV SCH (14:16)
[2021-02-22] MEDS: ONDANSETRON HCL/PF 4 MG/2 ML VIAL IVP PRN (18:00)
--- NOTE | 2021-02-22 19:13 | NUR ---
RN CLOSING NOTE Patient in bed awake on NC 2l tolerating well. No co pain or discomfort at this time. Heparin running 1800u/hr in SALOMÓN midline. Dressing changes done as ordered. All due meds given. Vital signs within normal limits. Endorsed to coat checker nurse for jenny.
--- NOTE | 2021-02-22 19:30 | NUR ---
RN NOTE RECEIVED PATIENT AWAKE, ALERT. DENIES ANY PAIN AT THIS TIME. ON O2 THERAPY 2L VIA NC, DENIES SOB, NO SIGNS OF DISTRESS NOTED. ON TELE MONITORING SHOWS SR WITH HR OF 90. PT ON HEPARIN DRIP AT 1800 U/HR. IV PATENT AND INTACT. PT WOUND DRESSING ON R FOOT CLEAN DRY AND INTACT. HD CATH IN PLACE, NO SIGNS DO BLEEDING NOTED. ALL SAFETY MEASURES IN PLACE PER PROTOCOL. CALL LIGHT WITHIN REACH BED LOCKED IN LOWEST POSITION, SIDE RAILS UP. WILL CONTINUE TO MONITOR.
[2021-02-22] MEDS ORDERED: INSULIN GLARGINE, 100 UNIT/ML CARTRIDGE SQ SCH (22:00)
[2021-02-22] MEDS: *INSULIN REGULAR(HUMULIN R)HUM 100 UNIT/ML VIAL SQ PRN (22:09)
--- NOTE | 2021-02-22 22:45 | NUR ---
RN NOTE WOUND TREATMENT DONE ON RIGHT FOOT. NORCO WAS GIVEN BEFORE TX, PT TOLERATED WELL.
[2021-02-23] VITALS (21 sets, daily range): BP systolic 104–151; BP diastolic 57–115
[2021-02-23] MEDS: HEPARIN INFUSION/D5W 500 ML IV PRN (02:59)
[2021-02-23 04:59] LABS: CALCIUM, SERUM 7.7 mg/dL (8.5-10.1)
--- NOTE | 2021-02-23 05:27 | NUR ---
RN NOTE PTT RESULT 80.6. DECREASED HEPARIN DRIP RATE PER PROTOCOL. CURRENT RATE 1700U/HR. CONFIRMED WITH CHARGE NURSE. NO SIGNS OF BLEEDING NOTED. WILL CONTINUE TO MONITOR.
--- NOTE | 2021-02-23 06:39 | NUR ---
RN NOTE PT TOLERATING O2 AT 2L, DENIES ANY SOB. PT ABLE TO MAKE NEEDS KNOWN. DENIES PAIN AT THIS TIME. HEPARIN DRIP AT 17OO U/HR. NO SIGNS OF INFILTRATION NOTED. WOUND DRESSING REMAIN CLEAN DRY AND INTACT. ALL SAFETY MAINTAINED. WILL ENDORSE TO NEXT SHIFT NURSE FOR BRANDON.
[2021-02-23] MEDS: BLOOD SUGAR DIAGNOSTIC 1 EACH STRIP IN SCH ×2 (07:10→11:56)
[2021-02-23] MEDS: INSULIN REGULAR, HUMAN 100 UNIT/ML 3 ML VIAL SQ PRN ×2 (07:22→11:55)
--- NOTE | 2021-02-23 08:00 | NUR ---
RN NOTES RECEIVED PATIENT IN THE BED A/O X4, ON O2-2LNC. PATIENT HAS NO ACUTE RESPIRATORY DISTRESS, VSS, INFUSING HEPARIN DRIP 1700U/HR ON RIGHT UA MIDLINE INTACT. PATIENT HAS WOUND ON RIGHT FOOT, DRESSING INTACT. REFUSED PAIN AT THIS TIME. PATIENT USING URINAL. HAS ORDER TO TRANSFER TO THE [facility]UTE [facility] FOR SURGERY VIA Dr SHARMA. CALL LIGHT WITHIN TO REACH. WILL FOLLOW UP.
[2021-02-23] MEDS: ASPIRIN 81 MG TAB.CHEW PO SCH (08:11)
[2021-02-23] MEDS: LINEZOLID 600 MG TABLET PO SCH (08:11)
--- NOTE | 2021-02-23 11:56 | NUR ---
rn notes bs-184 mg/dl coverage given, Patient will be room on [address] [address] [phone] waiting for phone number to be given report. excelsior picker time 1400 pm via ambulance.
--- NOTE | 2021-02-23 12:26 | NUR ---
RN NOTES PTT AT THIS TIME IS 55.5 NO CHANGE INFUSION CONTINUE 1700U/HR. WILL MONITORING.
--- NOTE | 2021-02-23 14:04 | NUR ---
rn notes report given [facility] RN name Vinod. RN verbalized understanding. All belonging with the patient . patient sign paperwork. patient notified family about transferring. will follow up.
[2021-02-23] MEDS: CEFTRIAXONE 2 G in IV D5W 100 ML IV SCH (14:11)
--- NOTE | 2021-02-23 15:00 | NUR ---
BANK CONSULTANT NOTES PATIENT PHYSICIST ASTROPHYSICS AT THIS TIME GOING [facility]. PATIENT STABLE, NO ACUTE RESPIRATORY DISTRESS, VSS, REFUSED PAIN. MED RECONCILIATION AND DISCHARGE ORDER REVIEWED AND EXPLAINED TO THE PATIENT. ADMITTING DR LEUNG AWARE OF. PATIENT SIGN PAPERWORK. PATIENT PHYSICIST ASTROPHYSICS VIA AMBULANCE.
[2021-02-23] MEDS ORDERED: INSULIN GLARGINE, 100 UNIT/ML CARTRIDGE SQ SCH (22:00)
== END 2021-02-23 15:00 | disposition short-term general hospital (02) | DRG 853 ==
LOC: MED 19:46 → ICU 02-19 16:47
PROVIDERS: ADMIT Nurse Practitioner Acute Care; ATTEND Internal Medicine
PROC: 0L9V0ZZ Drainage of Right Foot Tendon, Open Approach (ICD-10-PCS; principal; 2021-02-19)
PROC: 05H533Z Insertion of Infusion Device into Right Subclavian Vein, Percutaneous Approach (ICD-10-PCS; 2021-02-19)
PROC: B546ZZA Ultrasonography of Right Subclavian Vein, Guidance (ICD-10-PCS; 2021-02-19)
PROC: 4A023N7 Measurement of Cardiac Sampling and Pressure, Left Heart, Percutaneous Approach (ICD-10-PCS; 2021-02-21)
PROC: B211YZZ Fluoroscopy of Multiple Coronary Arteries using Other Contrast (ICD-10-PCS; 2021-02-21)
PROC: 06HY33Z Insertion of Infusion Device into Lower Vein, Percutaneous Approach (ICD-10-PCS; 2021-02-21)
PROC: B41FYZZ Fluoroscopy of Right Lower Extremity Arteries using Other Contrast (ICD-10-PCS; 2021-02-21)
PROC: B41GYZZ Fluoroscopy of Left Lower Extremity Arteries using Other Contrast (ICD-10-PCS; 2021-02-21)
DX: A41.9 Sepsis, unspecified organism (principal); M72.6 Necrotizing fasciitis; N17.0 Acute kidney failure with tubular necrosis; I21.4 Non-ST elevation (NSTEMI) myocardial infarction; R65.21 Severe sepsis with septic shock; E11.10 Type 2 diabetes mellitus with ketoacidosis without coma; I96 Gangrene, not elsewhere classified; E11.52 Type 2 diabetes mellitus with diabetic peripheral angiopathy with gangrene; M86.171 Other acute osteomyelitis, right ankle and foot; L03.115 Cellulitis of right lower limb; E87.1 Hypo-osmolality and hyponatremia; L02.611 Cutaneous abscess of right foot; L97.418 Non-pressure chronic ulcer of right heel and midfoot with other specified severity; M86.8X7 Other osteomyelitis, ankle and foot; I42.9 Cardiomyopathy, unspecified; E11.621 Type 2 diabetes mellitus with foot ulcer; E11.65 Type 2 diabetes mellitus with hyperglycemia; I10 Essential (primary) hypertension; E78.5 Hyperlipidemia, unspecified; E11.69 Type 2 diabetes mellitus with other specified complication; E11.22 Type 2 diabetes mellitus with diabetic chronic kidney disease; L03.031 Cellulitis of right toe; I25.10 Atherosclerotic heart disease of native coronary artery without angina pectoris; Z79.82 Long term (current) use of aspirin; Z87.891 Personal history of nicotine dependence; Z91.19 Patient's noncompliance with other medical treatment and regimen; L97.514 Non-pressure chronic ulcer of other part of right foot with necrosis of bone; I95.9 Hypotension, unspecified; E11.40 Type 2 diabetes mellitus with diabetic neuropathy, unspecified; G47.33 Obstructive sleep apnea (adult) (pediatric); N18.9 Chronic kidney disease, unspecified; D64.9 Anemia, unspecified
CPT/HCPCS: 36415; 71045-TC; 73630-TC; 73718-TC; 75630-TC; 76700-TC; 76770-TC; 80048-TC; 80053-TC; 80061-TC; 80202-TC; 81001; 82570-TC; 82962-TC; 83735-TC; 84100-TC; 84155-TC; 84300-TC; 84484-TC; 85025-TC; 85610-TC; 85652-TC; 85730-TC; 86140-TC; 87040-TC; 87070-TC; 87081-TC; 87086-TC; 93307-TC; A4216; A6253; A6403; A6407; C1750; C1769; C1887; C1894; G0378; G0500; J0690; J0696; J1644; J1815; J2185; J2250; J2405; J2543; J2704; J2765; J3010; J3370; J3490; J7030; J7050; J7060; P9047; Q9967

== ENCOUNTER 2021-03-28 10:42 | Outpatient (CLI) | payer BC ==
[~2021-03-28 10:42] MED LIST: ASPI-1169 PO; ATOR20TA PO; LISI10TA29 PO
[2021-03-28] MEDS ORDERED: GENTAMICIN 0.1% CREAM 15 GM TUBE ONE (11:32)
[2021-03-28] MEDS ORDERED: MUPIROCIN 2% CREAM 15 GM TUBE TP ONE (11:32)
== END 2021-03-28 23:59 | disposition home health service (06) ==
LOC: WOU 10:42
PROVIDERS: ATTEND Podiatrist Foot & Ankle Surgery
DX: E11.621 Type 2 diabetes mellitus with foot ulcer (principal); L97.415 Non-pressure chronic ulcer of right heel and midfoot with muscle involvement without evidence of necrosis; L97.514 Non-pressure chronic ulcer of other part of right foot with necrosis of bone; Z89.421 Acquired absence of other right toe(s); Z79.4 Long term (current) use of insulin; Z79.82 Long term (current) use of aspirin; Z79.899 Other long term (current) drug therapy; I25.10 Atherosclerotic heart disease of native coronary artery without angina pectoris; Z95.1 Presence of aortocoronary bypass graft; I25.5 Ischemic cardiomyopathy; I13.0 Hypertensive heart and chronic kidney disease with heart failure and stage 1 through stage 4 chronic kidney disease, or unspecified chronic kidney disease; N18.30 Chronic kidney disease, stage 3 unspecified; I50.20 Unspecified systolic (congestive) heart failure; D63.8 Anemia in other chronic diseases classified elsewhere; E78.5 Hyperlipidemia, unspecified; Z87.891 Personal history of nicotine dependence
CPT/HCPCS: 11043

== ENCOUNTER 2021-04-02 09:30 | Outpatient (CLI) | payer BC ==
[2021-04-02] MEDS ORDERED: GENTAMICIN 0.1% CREAM 15 GM TUBE ONE (10:16)
[2021-04-02] MEDS ORDERED: MUPIROCIN 2% CREAM 15 GM TUBE TP ONE (10:16)
== END 2021-04-02 23:59 | disposition home or self-care (01) ==
LOC: WOU 09:30
PROVIDERS: ATTEND Specialist
DX: E11.69 Type 2 diabetes mellitus with other specified complication (principal); M86.671 Other chronic osteomyelitis, right ankle and foot; Z89.421 Acquired absence of other right toe(s); E11.621 Type 2 diabetes mellitus with foot ulcer; L97.514 Non-pressure chronic ulcer of other part of right foot with necrosis of bone; Z95.1 Presence of aortocoronary bypass graft; I25.10 Atherosclerotic heart disease of native coronary artery without angina pectoris; E78.5 Hyperlipidemia, unspecified; E11.22 Type 2 diabetes mellitus with diabetic chronic kidney disease; I13.0 Hypertensive heart and chronic kidney disease with heart failure and stage 1 through stage 4 chronic kidney disease, or unspecified chronic kidney disease; N18.30 Chronic kidney disease, stage 3 unspecified; I50.20 Unspecified systolic (congestive) heart failure; E11.52 Type 2 diabetes mellitus with diabetic peripheral angiopathy with gangrene; I96 Gangrene, not elsewhere classified; Z79.4 Long term (current) use of insulin; Z79.899 Other long term (current) drug therapy; Z79.82 Long term (current) use of aspirin
CPT/HCPCS: G0463

== ENCOUNTER 2021-04-04 10:22 | Outpatient (CLI) | payer BC | END 2021-04-04 23:59 | disposition home health service (06) | LOC: WOU 10:22 | PROVIDERS: ATTEND Podiatrist Foot & Ankle Surgery | DX: E11.621 Type 2 diabetes mellitus with foot ulcer (principal); L97.514 Non-pressure chronic ulcer of other part of right foot with necrosis of bone; T81.89XA Other complications of procedures, not elsewhere classified, initial encounter; L97.813 Non-pressure chronic ulcer of other part of right lower leg with necrosis of muscle; Z89.421 Acquired absence of other right toe(s); Z87.891 Personal history of nicotine dependence; I25.10 Atherosclerotic heart disease of native coronary artery without angina pectoris; Z95.1 Presence of aortocoronary bypass graft; E11.69 Type 2 diabetes mellitus with other specified complication; M86.671 Other chronic osteomyelitis, right ankle and foot; E11.22 Type 2 diabetes mellitus with diabetic chronic kidney disease; I13.0 Hypertensive heart and chronic kidney disease with heart failure and stage 1 through stage 4 chronic kidney disease, or unspecified chronic kidney disease; N18.30 Chronic kidney disease, stage 3 unspecified; I50.20 Unspecified systolic (congestive) heart failure; R60.0 Localized edema | CPT/HCPCS: 11043 ==

== ENCOUNTER 2021-04-11 10:25 | Outpatient (CLI) | payer BC ==
[2021-04-11] MEDS ORDERED: GENTAMICIN 0.1% CREAM 15 GM TUBE ONE (10:51)
[2021-04-11] MEDS ORDERED: MUPIROCIN 2% CREAM 15 GM TUBE TP ONE (10:52)
[2021-04-11] MEDS ORDERED: COLLAGENASE 5 GM TUBE UD TP ONE (11:02)
== END 2021-04-11 23:59 | disposition home health service (06) ==
LOC: WOU 10:25
PROVIDERS: ATTEND Podiatrist Foot & Ankle Surgery
DX: E11.621 Type 2 diabetes mellitus with foot ulcer (principal); L97.514 Non-pressure chronic ulcer of other part of right foot with necrosis of bone; E11.69 Type 2 diabetes mellitus with other specified complication; M86.671 Other chronic osteomyelitis, right ankle and foot; Z89.421 Acquired absence of other right toe(s); E11.40 Type 2 diabetes mellitus with diabetic neuropathy, unspecified; Z79.4 Long term (current) use of insulin; Z79.899 Other long term (current) drug therapy
CPT/HCPCS: 11043

== ENCOUNTER 2021-04-17 11:11 | Emergency (ER) | payer BC ==
[~2021-04-17] VITALS: Ht 182.9 cm; Wt 85.3 kg
[2021-04-17 11:18] VITALS: BP 111/84
--- NOTE | 2021-04-17 11:20 | NUR ---
PATIENT HERE REQUESTING PICC LINE REMOVAL TO RUE. O RESPIRATORY DISTRESS NOTED. RESPIRATIONS EVEN AND UNLABORED. AWAITING MD LUNDBERG
--- NOTE | 2021-04-17 12:53 | NUR ---
Patient PICC line d/c and discharged to home in stable condition. Written and verbal after care instructions given. Patient verbalizes understanding of instruction.
== END 2021-04-17 12:54 | disposition home or self-care (01) ==
LOC: ER 11:12
DX: Z45.2 Encounter for adjustment and management of vascular access device (principal); E11.9 Type 2 diabetes mellitus without complications; Z90.89 Acquired absence of other organs; Z98.890 Other specified postprocedural states; Z79.82 Long term (current) use of aspirin; Z79.899 Other long term (current) drug therapy

== ENCOUNTER 2021-04-18 11:00 | Outpatient (CLI) | payer BC | END 2021-04-18 23:59 | disposition home health service (06) | LOC: WOU 11:00 | PROVIDERS: ATTEND Podiatrist Foot & Ankle Surgery | DX: E11.621 Type 2 diabetes mellitus with foot ulcer (principal); L97.515 Non-pressure chronic ulcer of other part of right foot with muscle involvement without evidence of necrosis; E11.69 Type 2 diabetes mellitus with other specified complication; M86.671 Other chronic osteomyelitis, right ankle and foot; Z89.421 Acquired absence of other right toe(s); Z79.4 Long term (current) use of insulin; Z79.82 Long term (current) use of aspirin | CPT/HCPCS: 11043 ==

== ENCOUNTER 2021-04-25 11:18 | Outpatient (CLI) | payer BC ==
[2021-04-25] MEDS ORDERED: COLLAGENASE 5 GM TUBE UD TP ONE (11:45)
== END 2021-04-25 23:59 | disposition home health service (06) ==
LOC: WOU 11:18
PROVIDERS: ATTEND Podiatrist Foot & Ankle Surgery
DX: E11.621 Type 2 diabetes mellitus with foot ulcer (principal); L97.515 Non-pressure chronic ulcer of other part of right foot with muscle involvement without evidence of necrosis; E11.69 Type 2 diabetes mellitus with other specified complication; M86.671 Other chronic osteomyelitis, right ankle and foot; Z89.421 Acquired absence of other right toe(s); Z79.4 Long term (current) use of insulin; Z79.82 Long term (current) use of aspirin
CPT/HCPCS: 11042; 11043; 11045

== ENCOUNTER 2021-05-02 11:11 | Outpatient (CLI) | payer BC ==
[2021-05-02] MEDS ORDERED: COLLAGENASE 5 GM TUBE UD TP ONE (11:41)
== END 2021-05-02 23:59 | disposition home health service (06) ==
LOC: WOU 11:11
PROVIDERS: ATTEND Podiatrist Foot & Ankle Surgery
DX: E11.621 Type 2 diabetes mellitus with foot ulcer (principal); L97.512 Non-pressure chronic ulcer of other part of right foot with fat layer exposed; L97.515 Non-pressure chronic ulcer of other part of right foot with muscle involvement without evidence of necrosis; E11.69 Type 2 diabetes mellitus with other specified complication; M86.671 Other chronic osteomyelitis, right ankle and foot; Z89.421 Acquired absence of other right toe(s); Z79.4 Long term (current) use of insulin; Z79.82 Long term (current) use of aspirin
CPT/HCPCS: 11042; 11045

== ENCOUNTER 2021-05-09 11:15 | Outpatient (CLI) | payer BC ==
[2021-05-09] MEDS ORDERED: COLLAGENASE 5 GM TUBE UD TP ONE (12:02)
== END 2021-05-09 23:59 | disposition home health service (06) ==
LOC: WOU 11:15
PROVIDERS: ATTEND Podiatrist Foot & Ankle Surgery
DX: E11.621 Type 2 diabetes mellitus with foot ulcer (principal); L97.515 Non-pressure chronic ulcer of other part of right foot with muscle involvement without evidence of necrosis; L02.611 Cutaneous abscess of right foot; E11.69 Type 2 diabetes mellitus with other specified complication; M86.671 Other chronic osteomyelitis, right ankle and foot; L03.031 Cellulitis of right toe; Z89.421 Acquired absence of other right toe(s); Z79.4 Long term (current) use of insulin; I10 Essential (primary) hypertension
CPT/HCPCS: 10060; 11043; 87070-TC; 87075-TC

== ENCOUNTER 2021-05-16 10:50 | Outpatient (CLI) | payer BC ==
[2021-05-16] MEDS ORDERED: LIDOCAINE SOLN 4% 50 ML BOTTLE ONE (11:09)
[2021-05-16] MEDS ORDERED: COLLAGENASE 5 GM TUBE UD TP ONE (11:58)
== END 2021-05-16 23:59 | disposition home health service (06) ==
LOC: WOU 10:50
PROVIDERS: ATTEND Podiatrist Foot & Ankle Surgery
DX: E11.621 Type 2 diabetes mellitus with foot ulcer (principal); L97.515 Non-pressure chronic ulcer of other part of right foot with muscle involvement without evidence of necrosis; E11.69 Type 2 diabetes mellitus with other specified complication; M86.671 Other chronic osteomyelitis, right ankle and foot; Z89.421 Acquired absence of other right toe(s); Z79.4 Long term (current) use of insulin; Z79.82 Long term (current) use of aspirin
CPT/HCPCS: 11042; 11730

== ENCOUNTER 2021-05-23 10:50 | Outpatient (CLI) | payer BC ==
[2021-05-23] MEDS ORDERED: UREA 10% -AHA 4% CREAM 57 GM TUBE ONE (11:29)
== END 2021-05-23 23:59 | disposition home health service (06) ==
LOC: WOU 10:50
PROVIDERS: ATTEND Podiatrist Foot & Ankle Surgery
DX: E11.621 Type 2 diabetes mellitus with foot ulcer (principal); L97.512 Non-pressure chronic ulcer of other part of right foot with fat layer exposed; E11.69 Type 2 diabetes mellitus with other specified complication; M86.671 Other chronic osteomyelitis, right ankle and foot; Z79.4 Long term (current) use of insulin; Z89.431 Acquired absence of right foot; Z79.82 Long term (current) use of aspirin
CPT/HCPCS: 11042

== ENCOUNTER 2021-05-30 10:10 | Outpatient (CLI) | payer BC | END 2021-05-30 23:59 | disposition home health service (06) | LOC: WOU 10:10 | PROVIDERS: ATTEND Podiatrist Foot & Ankle Surgery | DX: E11.621 Type 2 diabetes mellitus with foot ulcer (principal); L97.512 Non-pressure chronic ulcer of other part of right foot with fat layer exposed; E11.69 Type 2 diabetes mellitus with other specified complication; M86.671 Other chronic osteomyelitis, right ankle and foot; Z79.4 Long term (current) use of insulin; Z89.421 Acquired absence of other right toe(s); Z79.82 Long term (current) use of aspirin | CPT/HCPCS: 11042 ==

== ENCOUNTER 2021-06-06 10:30 | Outpatient (CLI) | payer BC | END 2021-06-06 23:59 | disposition home health service (06) | LOC: WOU 10:30 | PROVIDERS: ATTEND Podiatrist Foot & Ankle Surgery | DX: E11.621 Type 2 diabetes mellitus with foot ulcer (principal); L97.513 Non-pressure chronic ulcer of other part of right foot with necrosis of muscle; E11.69 Type 2 diabetes mellitus with other specified complication; M86.671 Other chronic osteomyelitis, right ankle and foot; Z79.4 Long term (current) use of insulin; Z89.421 Acquired absence of other right toe(s); Z79.82 Long term (current) use of aspirin | CPT/HCPCS: 11043 ==

== ENCOUNTER 2021-06-20 09:00 | Outpatient (CLI) | payer BC | END 2021-06-20 23:59 | disposition home health service (06) | LOC: WOU 09:00 | PROVIDERS: ATTEND Podiatrist Foot & Ankle Surgery | DX: E11.621 Type 2 diabetes mellitus with foot ulcer (principal); L97.513 Non-pressure chronic ulcer of other part of right foot with necrosis of muscle; E11.69 Type 2 diabetes mellitus with other specified complication; M86.671 Other chronic osteomyelitis, right ankle and foot; Z89.421 Acquired absence of other right toe(s); Z79.4 Long term (current) use of insulin; Z79.82 Long term (current) use of aspirin | CPT/HCPCS: 11043 ==

== ENCOUNTER 2021-06-27 09:15 | Outpatient (CLI) | payer BC ==
[2021-06-29] MEDS ORDERED: POTASSIUM CL. PREMIX PERIPHER. 50 ML ONE (23:49)
[2021-06-29] MEDS ORDERED: POTASSIUM CHLORIDE 20 MEQ TAB.PRT.SR PO ONE (23:49)
[2021-06-30] MEDS ORDERED: POTASSIUM CL. PREMIX PERIPHER. 100 ML ONE (01:24)
== END 2021-06-27 23:59 | disposition home health service (06) ==
LOC: WOU 09:15
PROVIDERS: ATTEND Podiatrist Foot & Ankle Surgery
DX: E11.621 Type 2 diabetes mellitus with foot ulcer (principal); L97.515 Non-pressure chronic ulcer of other part of right foot with muscle involvement without evidence of necrosis; E11.69 Type 2 diabetes mellitus with other specified complication; M86.671 Other chronic osteomyelitis, right ankle and foot; Z89.421 Acquired absence of other right toe(s); Z79.4 Long term (current) use of insulin; Z79.82 Long term (current) use of aspirin
CPT/HCPCS: 11042; A6209; J3480